=== PATIENT | male | born 1980 | race Caucasian/White ===

== ENCOUNTER → 2025-02-16 | Emergency (ER) | payer SELFPAY ==
[~2025-02-16] VITALS: Ht 167.6 cm; Wt 85.0 kg
[2025-02-16 13:49] VITALS: BP 142/74; PULSE 88; RESP 16; TEMP 37.2; O2SAT 99
== END ==
LOC: ER 13:36
DX: M25.562 Pain in left knee (principal)
CPT/HCPCS: 73560; 99283